=== PATIENT | male | born 1950 | race Caucasian/White ===

== ENCOUNTER → 2019-07-29 | Emergency (ER) | payer MEDICARE, OTHER ==
[~2019-07-29] VITALS: Ht 180.3 cm; Wt 140.6 kg
[~2019-07-29] MED LIST: ASCORBIC ACID500 MG PO; BACTRIM DS TAB1 EACH PO; BUPROPION HCL150 M2 PO; CHLORTHALIDONE50 MG PO; CIPRO500 MG PO; CITRACAL + D E1 EACH PO; CO Q-10100 MG PO; DILTIAZEM ER180 M2 PO; DULOXETINE HCL60 MG PO; FAMOTIDINE20 MG PO; FLOMAX0.4 MG PO; GABAPENTIN300 MG PO; GLIPIZIDE XL5 MG PO; HYDROCODON-ACE1 EAC8 PO; LANTUS100 UNITS/ SUB-Q; LEVOTHYROXINE50 MCG PO; LOSARTAN POTASS25 MG PO; MAGNESIUM OXID420 MG PO; METFORMIN HCL1000 MG PO; OMEPRAZOLE20 MG PO; PERCOCET 5-3251 EACH PO; POTASSIUM CHLO10 MEQ PO; REQUIP0.25 MG PO; ROPINIROLE HCL4 MG PO; ROSUVASTATIN CA10 MG PO; SULINDAC200 MG PO; VICTOZA 2-0.6 MG/0.1 SUB-Q; VITAMIN A10000 UNIT PO; VITAMIN K PO; [UNRECOGNIZED DRUG - OTHER] PO
== END ==
LOC: ED 02:13
DX: N13.2 Hydronephrosis with renal and ureteral calculous obstruction (principal); I10 Essential (primary) hypertension; E11.9 Type 2 diabetes mellitus without complications; Z88.5 Allergy status to narcotic agent; Z79.899 Other long term (current) drug therapy; Z79.4 Long term (current) use of insulin; Z79.891 Long term (current) use of opiate analgesic
CPT/HCPCS: 74176; 80053; 81001; 85025; 96374; 96375; 99284-25; J1170; J1885; J2405